=== PATIENT | male | born 1995 | race Asian ===

== ENCOUNTER 2019-07-26 17:25 | Emergency (ER) | payer OTHER ==
[~2019-07-26] VITALS: Ht 172.7 cm; Wt 73.9 kg
[2019-07-26 17:33] VITALS: BP 144/85
--- NOTE | 2019-07-26 17:38 | NUR ---
flu like symptoms x 7 days; deneis fever
== END 2019-07-26 19:17 | disposition home or self-care (01) ==
LOC: ER 17:28
DX: R05 Cough (principal); R09.81 Nasal congestion; M79.18 Myalgia, other site
CPT/HCPCS: 71045-TC